=== PATIENT | male | born 1960 | race Caucasian/White ===

== ENCOUNTER 2016-11-25 11:56 | Inpatient (IN) | payer MEDICARE, MEDICAID ==
[~2016-11-25] VITALS: Ht 188 cm; Wt 109.0 kg
[2016-11-25 15:33] VITALS: BP 122/73
[2016-11-25] MEDS ORDERED: LAMO25 PO (16:12)
[2016-11-25] MEDS ORDERED: FLUO-191 PO (16:12)
[2016-11-25] MEDS ORDERED: QUET300T2 PO (16:12)
[2016-11-25] MEDS ORDERED: LEVO125T4 PO (16:12)
[2016-11-25] MEDS ORDERED: MIRT15 PO (16:12)
[2016-11-25 16:13] VITALS: BP 132/83
[2016-11-25] MEDS: LORazepam 2 MG TABLET PO PRN (18:46)
[2016-11-25] MEDS: ZOLPIDEM TARTRATE 10 MG TABLET PO PRN (20:38)
[2016-11-25] MEDS: QUEtiapine FUMARATE 100 MG TABLET PO PRN (20:38)
[2016-11-25] MEDS: QUEtiapine FUMARATE 300 MG TABLET PO SCH (20:42)
[2016-11-26 07:00] VITALS: BP 135/72
[2016-11-26] MEDS ORDERED: BACITRACIN 28.4 GM OINTMENT TP PRN (07:45)
[2016-11-26] MEDS ORDERED: MAG HYDROX/AL HYDROX/SIMETH ES 30 ML SUSPENSION UDCUP PO PRN (07:45)
[2016-11-26] MEDS ORDERED: ACETAMINOPHEN 325 MG TABLET PO PRN (07:45)
[2016-11-26] MEDS ORDERED: LOPERAMIDE HCL 2 MG CAPSULE PO PRN (07:45)
[2016-11-26] MEDS ORDERED: ALBUTEROL SULFATE HFA 90 MCG/PUFF 8 GM INHALER IH PRN (07:45)
[2016-11-26] MEDS ORDERED: CloNIDine HCL 0.1 MG TABLET PO PRN (07:45)
[2016-11-26] MEDS ORDERED: ONDANSETRON HCL 4 MG TABLET PO PRN (07:45)
[2016-11-26] MEDS ORDERED: PETROLATUM,WHITE 71 GM JELLY TP PRN (07:45)
[2016-11-26] MEDS ORDERED: MAGNESIUM HYDROXIDE SUSPENSION 30 ML UDCUP PO PRN (07:45)
[2016-11-26] MEDS ORDERED: IBUPROFEN 600 MG TABLET PO PRN (07:45)
[2016-11-26] MEDS ORDERED: BENZOCAINE/MENTHOL LOZENGE MM PRN (07:45)
[2016-11-26 08:38] LABS: BASOPHILS # (AUTO) 0.04 K/uL (0.00-0.20); BASOPHILS % (AUTO) 0.6 % (0.0-2.0); EOSINOPHILS # (AUTO) 0.07 K/uL (0.00-0.70); EOSINOPHILS % (AUTO) 0.92 % (1.0-6.0); HEMATOCRIT 42.3 % (41-53); HEMOGLOBIN 14.2 g/dL (13.5-17.5); LYMPHOCYTES # (AUTO) 2.4 K/uL (1.0-4.8); LYMPHOCYTES % (AUTO) 30.5 % (22.0-44.0); MEAN CORPUSCULAR HEMOGLOBIN 31.5 pg (26.0-34.0); MEAN CORPUSCULAR HGB CONC 33.5 G/dL (31.0-37.0); MEAN CORPUSCULAR VOLUME 94 fL (80-100); MONOCYTES # (AUTO) 0.6 K/uL (0.1-1.0); MONOCYTES % (AUTO) 7.6 % (2.0-9.0); NEUTROPHILS # (AUTO) 4.7 K/uL (1.8-7.7); NEUTROPHILS % (AUTO) 60.4 % (40.0-70.0); PLATELET COUNT (AUTO) 269 K/uL (150-450); RED BLOOD CELL COUNT(AUTO) 4.51 MIL/uL (4.50-5.90); RED CELL DISTRIBUTION WIDTH 13.7 % (11.5-14.5); WHITE BLOOD COUNT (AUTO) 7.8 K/uL (4.5-11.0)
[2016-11-26 08:44] LABS: ALANINE AMINOTRANSFERASE 48 U/L (12-78); ALBUMIN 3.1 g/dL (3.4-5.0); ANION GAP 7 mmol/L (8-16); ASPARTATE AMINOTRANSFERASE 31 U/L (15-37); BILIRUBIN,TOTAL 0.4 mg/dL (0.1-1.0); CALCIUM, TOTAL 8.7 mg/dL (8.8-10.5); CARBON DIOXIDE 28 mmol/L (22-29); CHLORIDE 108 mmol/L (98-107); CREATININE 0.88 mg/dL (0.60-1.30); GLOMERULAR FILTR. RATE CALC > 60 mL/min (>60); POTASSIUM 4.3 mmol/L (3.5-5.1); SODIUM SERUM 143 mmol/L (136-145); TOTAL PROTEIN, SERUM 5.6 g/dL (6.4-8.2); UREA NITROGEN, BLOOD 14 mg/dL (7-18)
[2016-11-26] MEDS ORDERED: NICOTINE 21 MG/24 HOUR PATCH TD SCH (09:00)
[2016-11-26] MEDS: LORazepam 2 MG TABLET PO PRN ×2 (09:01→17:33)
[2016-11-26] MEDS: NYSTATIN 15 GM POWDER BOTTLE TP SCH ×2 (09:01→17:33)
[2016-11-26] MEDS: FLUoxetine HCL 20 MG CAPSULE PO SCH (09:01)
[2016-11-26] MEDS: BACITRACIN 28.4 GM OINTMENT TP SCH ×2 (09:02→17:33)
[2016-11-26] MEDS: TAMSULOSIN HCL 0.4 MG CAPSULE PO SCH (09:04)
[2016-11-26] MEDS: DOCUSATE SODIUM 100 MG CAPSULE PO SCH ×2 (09:05→17:33)
[2016-11-26] MEDS: LISINOPRIL 10 MG TABLET PO SCH (09:05)
[2016-11-26] MEDS: OMEPRAZOLE 20 MG CAPSULE PO SCH (09:05)
[2016-11-26 09:08] VITALS: BP 136/83
[2016-11-26] MEDS: NICOTINE 21 MG/24 HOUR PATCH TD SCH (09:11)
[2016-11-26 16:31] VITALS: BP 131/81
[2016-11-26] MEDS: QUEtiapine FUMARATE 100 MG TABLET PO PRN (17:33)
[2016-11-26] MEDS: QUEtiapine FUMARATE 300 MG TABLET PO SCH (20:13)
[2016-11-27 00:26] VITALS: BP 127/68
[2016-11-27] MEDS: ZOLPIDEM TARTRATE 10 MG TABLET PO PRN ×2 (00:33→20:35)
[2016-11-27] MEDS: LEVOTHYROXINE SODIUM 100 MCG TABLET PO SCH (06:39)
[2016-11-27 08:15] VITALS: BP 107/70
[2016-11-27] MEDS: FLUoxetine HCL 20 MG CAPSULE PO SCH (09:30)
[2016-11-27] MEDS: LISINOPRIL 10 MG TABLET PO SCH (09:30)
[2016-11-27] MEDS: OMEPRAZOLE 20 MG CAPSULE PO SCH (09:30)
[2016-11-27] MEDS: TAMSULOSIN HCL 0.4 MG CAPSULE PO SCH (09:31)
[2016-11-27] MEDS: DOCUSATE SODIUM 100 MG CAPSULE PO SCH (09:31)
[2016-11-27] MEDS: NICOTINE 21 MG/24 HOUR PATCH TD SCH (09:32)
[2016-11-27] MEDS: BACITRACIN 28.4 GM OINTMENT TP SCH ×2 (09:32→17:03)
[2016-11-27] MEDS: NYSTATIN 15 GM POWDER BOTTLE TP SCH ×2 (09:32→17:03)
[2016-11-27] MEDS: DOCUSATE SODIUM 250 MG CAPSULE PO SCH (16:17)
[2016-11-27 16:23] VITALS: BP 137/85
[2016-11-27] MEDS: LORazepam 2 MG TABLET PO PRN (17:14)
[2016-11-27] MEDS: QUEtiapine FUMARATE 300 MG TABLET PO SCH (20:35)
[2016-11-28] MEDS: LEVOTHYROXINE SODIUM 100 MCG TABLET PO SCH (06:10)
[2016-11-28] MEDS ORDERED: LEVOTHYROXINE SODIUM 125 MCG TABLET PO SCH (06:30)
[2016-11-28 07:04] VITALS: BP 124/81
[2016-11-28] MEDS: FLUoxetine HCL 20 MG CAPSULE PO SCH (08:12)
[2016-11-28] MEDS: TAMSULOSIN HCL 0.4 MG CAPSULE PO SCH (08:12)
[2016-11-28] MEDS: LISINOPRIL 10 MG TABLET PO SCH (08:12)
[2016-11-28] MEDS: OMEPRAZOLE 20 MG CAPSULE PO SCH (08:12)
[2016-11-28] MEDS: DOCUSATE SODIUM 250 MG CAPSULE PO SCH (08:12)
[2016-11-28 08:13] VITALS: BP 141/88
[2016-11-28] MEDS: LORazepam 2 MG TABLET PO PRN (08:15)
[2016-11-28] MEDS: NICOTINE 21 MG/24 HOUR PATCH TD SCH (08:15)
[2016-11-28] MEDS: NYSTATIN 15 GM POWDER BOTTLE TP SCH (08:17)
[2016-11-28] MEDS: BACITRACIN 28.4 GM OINTMENT TP SCH (08:17)
[2016-11-28] MEDS ORDERED: DOCU250C91 PO (09:09)
[2016-11-28] MEDS ORDERED: LISI-661 PO (09:09)
[2016-11-28] MEDS ORDERED: OMEP20 PO (09:09)
[2016-11-28] MEDS ORDERED: TAMS0.4C32 PO (09:09)
[2016-11-28 09:58] LABS: CHOL/HDL RATIO 3.6 (4.2-7.3); THYROID STIMULATING HORMONE 5.97 uIU/mL (0.36-3.74)
== END 2016-11-28 13:40 | disposition home or self-care (01) | DRG 885 ==
LOC: B3A 15:33
DX: F25.1 Schizoaffective disorder, depressive type (principal); E44.1 Mild protein-calorie malnutrition; R45.851 Suicidal ideations; F17.210 Nicotine dependence, cigarettes, uncomplicated; I10 Essential (primary) hypertension; E03.9 Hypothyroidism, unspecified; F12.90 Cannabis use, unspecified, uncomplicated; B35.6 Tinea cruris; F60.9 Personality disorder, unspecified; F10.10 Alcohol abuse, uncomplicated; E58 Dietary calcium deficiency; J44.9 Chronic obstructive pulmonary disease, unspecified; K21.9 Gastro-esophageal reflux disease without esophagitis; Z72.89 Other problems related to lifestyle; Z71.6 Tobacco abuse counseling; Z68.30 Body mass index [BMI] 30.0-30.9, adult; Z79.899 Other long term (current) drug therapy; Z91.410 Personal history of adult physical and sexual abuse; Z91.5 Personal history of self-harm; Z91.14 Patient's other noncompliance with medication regimen; Z71.41 Alcohol abuse counseling and surveillance of alcoholic; Z71.51 Drug abuse counseling and surveillance of drug abuser
CPT/HCPCS: 82306; 84443; 87081